=== PATIENT | female | born 2000 | race Hispanic/Latino ===

== ENCOUNTER 2025-07-18 22:19 | Emergency (ER) | payer MEDICAID ==
[~2025-07-18] VITALS: Ht 152.4 cm; Wt 56.7 kg
--- NOTE | 2025-07-18 22:22 | NUR ---
UA CUP PROVIDED
--- NOTE | 2025-07-18 23:04 | NUR ---
UA COLLECTED AND SENT
--- NOTE | 2025-07-18 23:10 | ERN ---
General Chief Complaint: Vaginal Bleeding Stated Complaint: ABD CRAMPING, VAGINAL BLEEDING Time Seen by MD: 22:23 Source: patient History of Present Illness Initial Comments 25-year-old female who knows that she is approximately three months has had increased vaginal bleeding over the last 12 hours. She would like to be evaluated be sure her is healthy. She is otherwise asymptomatic. Allergies: Coded Allergies: No Known Allergies (Unverified Allergy, Unknown, 07/18/25) Past Medical History Past Medical History: No Pertinent History Past Surgical History: None Female( History) : 3 Para: 2 Constitutional: (-) chills, (-) diaphoresis, (-) fever, (-) malaise, (-) weakness, (-) other documentation EENTM: (-) eye pain, (-) blurred vision, (-) tearing, (-) double vision, (-) ear pain, (-) ear discharge, (-) nose pain, (-) nose congestion, (-) throat pain, (-) Throat swelling, (-) mouth pain, (-) tooth pain, (-) mouth swelling, (-) other documentation Respiratory: (-) cough, (-) orthopnea, (-) short of breath, (-) stridor, (-) wheezing, (-) other documentation Cardiovascular: (-) chest pain, (-) edema, (-) palpitations, (-) syncope, (-) dyspnea on exertion, (-) other documentation Gastrointestinal/Abdominal: (-) nausea, (-) vomiting, (-) diarrhea, (-) abdominal pain, (-) abdominal distention, (-) constipation, (-) rectal bleeding, (-) dark stool/melena, (-) other documentation Genitourinary: (+) vaginal bleeding Musculoskeletal: (-) Neck pain, (-) back pain, (-) Flank Pain, (-) joint pain, (-) joint swelling, (-) muscle pain, (-) muscle stiffness, (-) gout, (-) other documentation Physical Exam General Appearance: (+) no apparent distress Orientation: (+) alert, (+) oriented x 3 Head/Face Trauma: No Eye: bilateral eye normal inspection, bilateral eye PERRL, bilateral eye EOMI Ear, Nose, Throat: (+) hearing grossly normal, (+) normal ENT inspection, (+) moist mucous membraine Neck: (+) normal inspection, (+) supple, (+) full range of motion Respiratory: (+) chest non-tender, (+) lungs clear, (+) well ventilated Heart: (+) regular, (+) no gallop Vascular: (+) no edema, (+) normal peripheral pulse Gastrointestinal: (+) soft, (+) non-tender, (+) bowel sound present Results Laboratory and Microbiology Lab and Micro Result Laboratory Tests Test 07/18/25 23:04 Urine Color LIGHT-YELLOW (YELLOW) Urine Appearance CLEAR (CLEAR) Urine pH 6.5 (5.0-8.0) Urine Specific [place] 1.015 (1.001-1.031) Urine Protein NEGATIVE mg/dL (NEGATIVE) Urine Glucose (UA) NEGATIVE mg/dL (NEGATIVE) Urine Ketones NEGATIVE mg/dL (NEGATIVE) Urine Occult Blood LARGE (NEGATIVE) H Urine Nitrate NEGATIVE (NEGATIVE) Urine Bilirubin NEGATIVE mg/dL (NEGATIVE) Urine Urobilinogen 0.2 mg/dL (0.2-1.0) Urine Leukocyte Esterase NEGATIVE [place]/uL Urine RBC 2-5 /HPF (0-1) H Urine WBC 2-5 /HPF (0-1) H Urine Squamous Epithelial Cells FEW /HPF (0-2) Urine Bacteria None /HPF (None Seen) Urine HCG, Qualitative POSITIVE (NEGATIVE) H MDM I will order a quantitative test as well as a UA, urine and ultrasound. The ultrasound shows no intra uterine . The lining of the cervix is a little irregular. Patient has not had labs drawn to confirm the absence or presence of a ; however, patient meets with her regional operations director tomorrow 07/19/2025. The patient can have her blood drawn there to get the quantitative beta HCG result and a CBC to check her red blood cell mass. The patient is asymptomatic i.e. no lightheadedness or dizziness. Her only symptom is some mild nausea and vomiting. I will send a prescription to her pharmacy for Zofran. ED Course Orders Procedure Category Date Status Time Basic Metabolic Panel LAB 07/18/25 Logged 22:59 Cbc With Differential LAB 07/18/25 Logged 22:59 ,Urine Test LAB 07/18/25 Complete 22:59 Urinalysis Profile LAB 07/18/25 Complete 22:59 Hcg,Quantitative LAB 07/18/25 Logged 22:59 Us Ob Transvaginal US 07/18/25 Taken 22:59 Vital Signs Date Time Temp Pulse Resp B/P (MAP) Pulse Ox O2 Delivery O2 Flow Rate FiO2 07/18/25 22:21 98.1 71 18 134/98 98 Room Air DX & DISP Disposition: Discharge Departure Impression: Primary Impression: Abnormal uterine bleeding Condition: Stable Scripts Ondansetron (Ondansetron Odt) 4 Mg Tab.rapdis 1 TAB PO Q6HPRN PRN for nausea/vomiting for 4 Days, #7 TAB 0 Refills Prov: JONATHAN ORTA MD 07/19/25 Additional Instructions: The ultrasound does not show an intrauterine . There is some irregular contour to the inside of your uterus. This may represent residual blood clots. 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 There she can do a quantitative test and also a CBC to make sure you are not anemic. I have sent a prescription to your pharmacy for Zofran which is safe during for just a few doses. An alternative would be Benadryl which you can buy [id number]. Please return to the emergency room if you have symptoms of anemia like dizziness lightheadedness and if you experience another round of bleeding from your uterus JONATHAN ORTA MD Jul 18, 2025 23:10
[2025-07-18 23:45] LABS: ADD UA MICROSCOPIC YES; APPEARANCE,URINE CLEAR (CLEAR); GLUCOSE, URINE (UA) NEGATIVE (NEGATIVE); LEUKOCYTE ESTERASE ,URINE NEGATIVE Leu/uL (NEGATIVE); NITRATE,URINE NEGATIVE (NEGATIVE); OCCULT BLOOD,URINE LARGE (NEGATIVE)
[2025-07-18 23:47] LABS: HCG,QUALITATIVE URINE POSITIVE (NEGATIVE)
[2025-07-18 23:48] LABS: SQUAMOUS EPITHELIAL CELL,UR FEW /HPF (0-2)
--- NOTE | 2025-07-19 00:01 | NUR ---
PT CALLED TO LAB AT THIS TIME
[2025-07-19] MEDS ORDERED: ONDA-243 PO (00:07)
[2025-07-19 00:15] VITALS: BP 115/65; PULSE 75; RESP 18; TEMP 98.8; O2SAT 99
--- NOTE | 2025-07-19 00:54 | HMCIMG ---
EXAMINATION: OB ULTRASOUND LESS THAN 14 WEEKS. CLINICAL HISTORY: Amenorrhea for 3 months. Vaginal Bleeding. COMPARISON: None. TECHNIQUE: Grayscale and color ultrasound images were obtained utilizing a transabdominal transducer. FINDINGS: The uterus is anteverted, bulky in caliber, and measures 11.3 x 7.5 x 8.2 cm in the craniocaudal, AP, and transverse dimensions, respectively. The endometrium is thickened and measures approximately 2.28 cm. There is no intrauterine gestation sac seen at present. Cervix appears normal. The right ovary is normal in caliber and measures 2.5 x 1.7 x 2.2 cm. The left ovary is normal in caliber and measures 1.7 x 1.3 x 1.3 cm. There is no free fluid in the cul-de-sac. IMPRESSION: Bulky uterus with thickened endometrium. No intrauterine gestation sac at present. Recommend serial quantitative beta-hCG and short interval follow-up. /[place]
== END 2025-07-19 00:22 | disposition home or self-care (01) ==
LOC: EDH 22:19
DX: O20.9 Hemorrhage in early pregnancy, unspecified (principal); Z3A.12 12 weeks gestation of pregnancy
CPT/HCPCS: 76817; 81001; 81025; 99284